=== PATIENT | female | born 1970 | race Caucasian/White ===

== ENCOUNTER 2018-08-27 00:26 | Emergency (ER) | payer OTHER ==
[~2018-08-27] VITALS: Ht 154.9 cm; Wt 76.7 kg
[2018-08-27 00:33] VITALS: BP 159/80
--- NOTE | 2018-08-27 00:40 | NUR ---
PT TAKEN TO BED 3
--- NOTE | 2018-08-27 00:42 | NUR ---
47 Y/O F PRESENST TOP THE ED W/C/O GETTING BLEACH IN L EYE X 20 MINS AGO. REDNESS AND WATERING NOTED UPON ASSESSMENT. PT DENIES N/V/D; AAOX4, PERRL, WITH EVEN AND STEADY GAIT; LUNGS CLEAR BL, BREATHING UNLABORED; HR EVEN AND REGULAR, BL PERIPHERAL PULSES PRESENT; BS ACTIVE X4, NO TENDERNESS TO PALPATION, NO HEPATOSPLENOMEGALLY PALPATED, RESONANT TO PERCUSSION; PT DENIES ANY FEVER, CP, SOB, OR COUGH AT THIS TIME; PT STATES 8/10 PAIN AT THIS TIME; VSS; PATIENT POSITIONED FOR COMFORT; HOB ELEVATED; BEDRAILS UP X2; BED DOWN.
--- NOTE | 2018-08-27 01:18 | NUR ---
Dr. Díaz evaluating patient at bedside.
[2018-08-27] MEDS ORDERED: FLUORESCEIN OPTH STRIP 0.6 MG OP ONE (01:20)
[2018-08-27] MEDS ORDERED: TETRACAINE HCL/PF 0.5% OPTH 4 ML BTL OP ONE (01:20)
[2018-08-27 01:30] VITALS: BP 159/80
--- NOTE | 2018-08-27 01:53 | NUR ---
PATIENT ELOPED FROM FACILITY. DISCHARGE INSTRUCTIONS NOT GIVEN TO PATIENT. DR. TORRE NOTIFIED.
== END 2018-08-27 01:53 | disposition left against medical advice (07) ==
LOC: MED 00:26
DX: H10.212 Acute toxic conjunctivitis, left eye (principal)
CPT/HCPCS: 99282